=== PATIENT | male | born 1975 | race Caucasian/White ===

== ENCOUNTER 2017-07-16 03:11 | Emergency (ER) | payer SELFPAY ==
--- NOTE | 2017-07-16 03:22 | EDPHY ---
H & P HPI/ROS: HPI CHIEF COMPLAINT: Alcohol Intoxication HISTORY OF PRESENT ILLNESS: Patient is a otherwise healthy 41-year-old male, presents to the emergency room acute alcohol intoxication. He EMS and police were called as this patient was found lying on the ground. No trauma reported. He came to the emergency room by EMS this was unable to ambulate had vomit down him. Past Medical History: Denies medical history Past Surgical History: Denies surgical history Social History: Large amount of alcohol this evening. Family History: Noncontributory ROS REVIEW OF SYSTEMS: A comprehensive 10 point review of systems is otherwise negative aside from elements mentioned in the history of present illness. Exam Constitutional Intoxicated, triage nursing summary reviewed, vital signs reviewed, Sleepy, smells of alcohol Eyes normal conjunctivae and sclera, horizontal beating nystagmus consistent acute alcohol intoxication, otherwise pupils equal and react to light HENT normal inspection, atraumatic, moist mucus membranes, no epistaxis, neck supple/ no meningismus, no raccoon eyes. Respiratory clear to auscultation bilaterally, normal breath sounds, no respiratory distress, no wheezing. Cardiovascular rate normal, regular rhythm, no murmur, no edema, distal pulses normal. Gastrointestinal soft, non-tender, no rebound, no guarding, normal bowel sounds, no distension, no pulsatile mass. Genitourinary no CVA tenderness. Musculoskeletal no midline vertebral tenderness, full range of motion, no calf swelling, no tenderness of extremities, no meningismus, good pulses, neurovascularly intact. Skin pink, warm, & dry, no rash, skin atraumatic. Neurologic sleepy, intoxicated with alcohol,, alert and oriented x 3, AAOx3, moves all 4 extremities equally, motor intact, sensory intact, CN II-XII intact , , normal vision, normal speech. Psychiatric normal mood/affect. Heme/Lymph/Immune no lymphadenopathy. Differential Diagnosis: Includes but is not limited to in a particular order acute alcohol intoxication, alcohol abuse, dehydration, electrolyte abnormality , nausea vomiting from acute alcohol intoxication Medical Decision Making: Plan for this patient check serum alcohol level. Monitor for worsening of condition. Monitor for sobriety. Re-evaluation: 0333: Patient ambulated well throughout the emergency room with a stable gait. No ataxia. Answer my questions appropriately. Calm and cooperative. Safe for discharge. He is on a [facility] hold. Okay to d/c from Er. No trauma seen. Source: Patient, EMS Constitutional: Initial Vital Signs Temperature (C) 36.6 C 07/16/17 03:22 Heart Rate 93 07/16/17 03:22 Respiratory Rate 20 07/16/17 03:22 Blood Pressure 123/85 H 07/16/17 03:22 O2 Sat (%) 92 07/16/17 03:22 O2 Delivery Mode Room Air Allergies/Adverse Reactions: No Known Allergies Allergy (Unverified 07/16/17 03:21) Home Medications: Medication Instructions Recorded NK [No Known Home Meds] 07/16/17 Departure - Departure Disposition: Home, Routine, Self-Care Clinical Impression: Alcoholic intoxication Qualifiers: Complication of substance-induced condition: uncomplicated Qualified Code(s): F10.920 - Alcohol use, unspecified with intoxication, uncomplicated Condition: Good Instructions: Alcohol Intoxication (ED), Abuse of Alcohol (ED) Referrals: Patient,NotPresent [Primary Care Provider] - As per Instructions
[2017-07-16 03:23] VITALS: RESP 20
[2017-07-16 03:54] VITALS: BP 122/78; PULSE 90; TEMP 98.2; O2SAT 93
== END 2017-07-16 03:40 | disposition home or self-care (01) ==
DX: F10.920 Alcohol use, unspecified with intoxication, uncomplicated (principal)